=== PATIENT | male | born 1970 | race Caucasian/White ===

== ENCOUNTER 2017-03-31 19:32 | Emergency (ER) | payer SELFPAY | END 2017-03-31 22:05 | disposition home or self-care (01) | LOC: ER1 19:32 | DX: S39.012A Strain of muscle, fascia and tendon of lower back, initial encounter (principal); I51.9 Heart disease, unspecified; F17.210 Nicotine dependence, cigarettes, uncomplicated; X50.1XXA Overexertion from prolonged static or awkward postures, initial encounter | CPT/HCPCS: 96372; 99283; J1885 ==

== ENCOUNTER → 2021-06-04 | Emergency (ER) | payer OTHER | END | disposition home or self-care (01) | LOC: ER1 15:25 | DX: T40.2X1A Poisoning by other opioids, accidental (unintentional), initial encounter (principal) | CPT/HCPCS: 99284 ==